=== PATIENT | female | born 1975 | race Caucasian/White ===

== ENCOUNTER → 2020-01-29 | Outpatient (CLI) | payer BC, OTHER | END | disposition home or self-care (01) | LOC: GI 06:52 | PROVIDERS: ATTEND Specialist | DX: R10.9 Unspecified abdominal pain (principal); R93.3 Abnormal findings on diagnostic imaging of other parts of digestive tract; Z11.59 Encounter for screening for other viral diseases ==

== ENCOUNTER → 2020-02-06 | Outpatient (CLI) | payer BC, OTHER | LOC: CAT 13:46 | PROVIDERS: ATTEND Family Medicine | DX: K42.9 Umbilical hernia without obstruction or gangrene (principal); Z98.890 Other specified postprocedural states ==

== ENCOUNTER → 2020-03-06 | Outpatient (CLI) | payer BC, OTHER | LOC: LAB 08:19 | PROVIDERS: ATTEND Anesthesiology | DX: Z01.812 Encounter for preprocedural laboratory examination (principal); Z11.59 Encounter for screening for other viral diseases ==

== ENCOUNTER → 2020-12-03 | Outpatient (CLI) | payer BC, OTHER | LOC: RAD 12:39 | PROVIDERS: ATTEND Nurse Practitioner | DX: R18.8 Other ascites (principal); R10.31 Right lower quadrant pain; Z90.710 Acquired absence of both cervix and uterus ==

== ENCOUNTER → 2021-03-22 | Outpatient (CLI) | payer BC, OTHER | LOC: ULTRA 07:55 | PROVIDERS: ATTEND Nurse Practitioner | DX: R10.9 Unspecified abdominal pain (principal) ==